=== PATIENT | male | born 1980 | race Caucasian/White ===

== ENCOUNTER 2016-06-26 15:23 | Emergency (ER) | payer SELFPAY ==
[2016-06-26 15:50] VITALS: TEMP 99.3
[2016-06-26 16:28] VITALS: BMI 30.1
[2016-06-26 17:25] LABS: ADD MANUAL DIFF? NO
[2016-06-26 17:34] LABS: BASO # 0.04 K/mm3 (0.0-2.0); BASO % 0.5 % (0.0-3.0); EOS # 0.4 (0.0-0.7); EOS % 5.1 % (1.5-5.0); GRAN # 4.35 (1.4-6.5); GRAN % 51.3 % (50.0-68.0); HEMATOCRIT 41.1 % (42.0-52.0); LYMPH # 3.1 (1.2-3.4); LYMPH % 36.8 % (22.0-35.0); MEAN CELL VOLUME 82.7 fL (80.0-105.0); MEAN CORPUSCULAR HEMOGLOBIN 28.8 pg (25.0-35.0); MEAN CORPUSCULAR HGB CONC 34.8 g/dl (31.0-37.0); MEAN PLATELET VOLUME 9.5 fl (7.0-11.0); MONO # 0.5 (0.1-0.6); MONO % 6.3 % (1.0-6.0); PLATELET COUNT 306 10^3/uL (120.0-450.0); RED CELL DISTRIBUTION WIDTH 12.8 % (11.5-14.5); WHITE BLOOD COUNT 8.5 10^3/ul (4.5-11.0)
[2016-06-26 17:45] LABS: ALB/GLOB RATIO 1.4 (1.1-1.8); ALKALINE PHOSPHATASE 102 U/L (38-133); ALT/SGPT 70 U/L (7-56); AST/SGOT 31 U/L (15-59); BILIRUBIN,TOTAL 0.9 mg/dL (0.2-1.3); BLOOD UREA NITROGEN 18 mg/dL (7-21); CALCIUM 9.1 mg/dL (8.4-10.5); CARBON DIOXIDE 28 mmol/L (21-33); CHLORIDE 101 mmol/L (98-107); GFR AFRICAN-AMERICAN > 60; GLUCOSE,RANDOM 102 mg/dL (70-110); MAGNESIUM 2.2 mg/dL (1.7-2.2); POTASSIUM 4.2 mmol/L (3.6-5.0); SODIUM 138 mmol/L (132-148); TOTAL PROTEIN 7.6 g/dL (5.8-8.3)
[2016-06-26 18:10] LABS: TROPONIN I < 0.01 ng/mL
--- NOTE | 2016-06-26 19:38 | ED PDOC ---
Arrival/HPI <Leah Garcia - Last Filed: 06/26/16 21:06> - General Historian: Patient <Florina Vences PA-C - Last Filed: 06/26/16 21:58> - General Chief Complaint: Chest Pain Time Seen by Provider: 06/26/16 16:19 - History of Present Illness Narrative History of Present Illness (Text): 06/26/16 20:03 Patient with no past medical history, reports sudden onset of left-sided pressure-like headache radiating down the left neck, left shoulder and the left upper chest, which started while he was sitting down on his desk at work, states that he also felt lightheaded when the symptoms had occurred, which started 10 minutes prior to arrival, here in the emergency room patient reports that the headache subsided, and reports of only discomfort to the left shoulder. 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 (Florina Vences PA-C) Past Medical History - Provider Review Nursing Documentation Reviewed: Yes - Past History Past History: No Previous - Infectious Disease Hx of Infectious Diseases: None - Tetanus Immunization Tetanus Immunization: Unknown - Past Medical History Past Medical History: No Previous - Cardiac Hx Cardiac Disorders: No - Pulmonary Hx Respiratory Disorders: No - Neurological Hx Neurological Disorder: No - HEENT Hx HEENT Disorder: No - Renal Hx Renal Disorder: No - Endocrine/Metabolic Hx Endocrine Disorders: No - Hematological/Oncological Hx Blood Disorders: No - Integumentary Hx Dermatological Disorder: No - Musculoskeletal/Rheumatological Hx Musculoskeletal Disorders: No Hx Falls: No - Gastrointestinal Hx Gastrointestinal Disorders: Yes Hx Diverticulitis: Yes Hx Gastroesophageal Reflux: Yes - Genitourinary/Gynecological Hx Genitourinary Disorders: No - Psychiatric Hx Psychophysiologic Disorder: Yes Hx Anxiety: Yes Hx Substance Use: No - Past Surgical History Past Surgical History: No Previous - Anesthesia Hx Anesthesia: No - Suicidal Assessment Feels Threatened In Home Enviroment: No <Florina Vences PA-C - Last Filed: 06/26/16 21:58> Family/Social History - Physician Review Nursing Documentation Reviewed: Yes Family/Social History: Hypertension (mother). denies: CAD/VA Smoking Status: Current Some Days Smoker Hx Alcohol Use: No Hx Substance Use: No Hx Substance Use Treatment: No <Florina Vences PA-C - Last Filed: 06/26/16 21:58> Allergies/Home Meds <Leah Garcia - Last Filed: 06/26/16 21:06> <Florina Vences PA-C - Last Filed: 06/26/16 21:58> Allergies/Adverse Reactions: Allergies No Known Allergies Allergy (Verified 10/12/12 02:52) per patient Review of Systems - Review of Systems Constitutional: Normal. absent: Fatigue, Weight Change, Fevers Respiratory: Normal. absent: SOB, Cough, Sputum Cardiovascular: Normal, Chest Pain. absent: Palpitations, Edema Gastrointestinal: Normal. absent: Abdominal Pain, Stool Changes, Appetite Changes Musculoskeletal: Normal, Arthralgias (L shoulder pain). absent: Back Pain, Neck Pain Skin: Normal. absent: Rash, Pruritis, Skin Lesions Neurological: Normal. absent: Headache, Dizziness, Focal Weakness <Florina Vences PA-C - Last Filed: 06/26/16 21:58> Physical Exam <Leah Garcia - Last Filed: 06/26/16 21:06> <Florina Vences PA-C - Last Filed: 06/26/16 21:58> - Physical Exam Narrative Physical Exam (Text): 06/26/16 20:07 GENERAL APPEARANCE: Patient is awake, alert, oriented x 3, in no acute distress. SKIN: Warm, dry; (-) cyanosis. EYES: (-) conjunctival pallor. ENMT: Mucous membranes moist. NECK: (+) L posterior tenderness, (-) stiffness, (-) lymphadenopathy, (-) JVD. CHEST AND RESPIRATORY: (-) rash, (-) chest wall tenderness. Lungs: (-) rales , (-) rhonchi, (-) wheezes, (-) rub; breath sounds equal bilaterally. HEART AND CARDIOVASCULAR: (-) irregularity; (-) murmur, (-) gallop, (-) rub. ABDOMEN AND GI: Soft; (-) distention, (+) mild tenderness to the L upper chest , (-) palpable pulsatile mass. EXTREMITIES: (+) pain elicited to the L shoulder with ROM, (-) deformity; (-) edema, (-) calf tenderness. (+) distal pulses. NEURO AND PSYCH: Mental status as above. Cranial nerves grossly intact; strength symmetric. (Florina Vences PA-C) Vital Signs Temp Pulse Resp BP Pulse Ox 06/26/16 21:02 74 15 144/73 100 06/26/16 19:44 64 20 127/66 100 06/26/16 17:23 67 18 134/43 L 97 06/26/16 15:50 99.3 F 68 20 134/80 97 Medical Decision Making <Leah Garcia - Last Filed: 06/26/16 21:06> - Lab Interpretations I have reviewed the lab results: Yes Interpretation: All labs normal <Florina Vences PA-C - Last Filed: 06/26/16 21:58> ED Course and Treatment: 06/26/16 21:04 Patient seen and examined. His pain was primarily from the head/neck to the L shoulder and worse with movement. The chest pain was exacerbated with movement. EKG is unremarkable with no ST/T changes and normal CE. Patient smokes but no FH of CAD; given toradol with improvement in the ED and says he will f/u in the medical clinic for further treatment and evaluation. (Leah Garcia) 06/26/16 20:08 36 yo M with no PMH, reports left-sided headache radiating to the left side of the neck, left shoulder and left upper chest. Based on exam symptoms are likely due to musculoskeletal pain as the pain is reproducible with palpation and range of motion. Plan: -- Labs -- alarm security or surveillance monitor -- EKG -- CXR -- Tylenol -- Reassess and disposition -- CT HEAD EKG: NSR at 77 bpm, (-) acute ST changes, as read by GIANCARLO. CXR : NAD, as read by PA Labs reviewed and are within normal limits, troponin is negative. On reevaluation, patient is lying comfortably in bed in no acute distress, denies any headache or chest pain at this time. Patient does report mild discomfort in his left shoulder radiating to the posterior left upper back and left neck. On exam, patient remains awake, alert, oriented 3, with tenderness noted to the left shoulder and left upper back, pain elicited to the left shoulder with range of motion. Patient given a dose of Toradol IV. On re-evaluation, patient is feeling much improved, feels comfortable going home , states that he will follow up with a doctor and knows of a clinic to follow up with. Patient states he fully agrees with and understands discharge instructions. States that he agrees with the plan and disposition. Verbalized and repeated discharge instructions and plan. I have given the patient opportunity to ask any additional questions. Follow up with a doctor in 1-2 days without fail. Return to the emergency room at any time for any new or worsening symptoms. (Ru JACKSON,Florina Del Rio) - Lab Interpretations Lab Results: 06/26/16 17:20 06/26/16 17:20 Lab Results 06/26/16 17:20: Sodium 138, Potassium 4.2, Chloride 101, Carbon Dioxide 28, Anion Gap 13, BUN 18, Creatinine 0.8, Est GFR ( Amer) > 60, Est GFR (Non- Af Amer) > 60, Random Glucose 102, Calcium 9.1, Magnesium 2.2, Total Bilirubin 0.9, AST 31, ALT 70 H, Alkaline Phosphatase 102, Lactate Dehydrogenase 388, Total Creatine Kinase 109, Troponin I < 0.01, Total Protein 7.6, Albumin 4.4, Globulin 3.2, Albumin/Globulin Ratio 1.4 06/26/16 17:20: WBC 8.5, RBC 4.97, Hgb 14.3, Hct 41.1 L, MCV 82.7, MCH 28.8, MCHC 34.8, RDW 12.8, Plt Count 306, MPV 9.5, Gran % 51.3, Lymph % (Auto) 36.8 H , Clayton % (Auto) 6.3 H, Eos % (Auto) 5.1 H, Baso % (Auto) 0.5, Gran # 4.35, Lymph # 3.1, [place] # 0.5, Eos # 0.4, Baso # 0.04 - RAD Interpretation Narrative RAD Interpretations (Text): 06/26/16 19:38 CT head: FINDINGS: Brain: Unremarkable. No hemorrhage. No significant white matter disease. No edema. Ventricles: Unremarkable. No ventriculomegaly. Bones/joints: Unremarkable. No acute fracture. Soft tissues: Unremarkable. Sinuses: Right maxillary sinus polyp. Mastoid air cells: Unremarkable as visualized. No mastoid effusion. IMPRESSION: No acute findings. Dictated and Authenticated by: Arpit Irene MD 06/26/2016 7:09 PM Eastern Time ([place] & [place]) (Florina Vences PA-C) Radiology Orders: 06/26/16 16:56 CHEST PORTABLE [RAD] Stat 06/26/16 16:58 HEAD W/O CONTRAST [CT] Stat - Medication Orders Current Medication Orders: Discontinued Medications Acetaminophen (Tylenol 325mg Tab) 975 mg PO STAT STA Stop: 06/26/16 16:59 Last Admin: 06/26/16 17:15 Dose: 975 mg Re-Assess: MAR Pain/Vitals Document 06/26/16 18:15 LAC (Rec: 06/26/16 19:46 [id number] Pain Reassessment Is This A Pain ReAssessment? Yes Sleep Is patient sleeping during reassessment? No Presence of Pain Presence of Pain Yes Pain Scale Used Pain Scale Used Numeric Location Intensity 6 Ketorolac Tromethamine (Toradol) 30 mg IVP STAT STA Stop: 06/26/16 19:43 Last Admin: 06/26/16 19:45 Dose: 30 mg - PA / PHOTOGRAPH RETOUCHER / Resident Statement ABEL has reviewed & agrees with the documentation as recorded. ABEL has examined the patient and agrees with the treatment plan. <Leah Garcia - Last Filed: 06/26/16 21:06> - PA / PHOTOGRAPH RETOUCHER / Resident Statement ABEL has reviewed & agrees with the documentation as recorded. <Florina Vences PA-C - Last Filed: 06/26/16 21:58> Disposition/Present on Arrival - Disposition Disposition Time: 21:05 Patient Plan: Discharge <Leah Garcia - Last Filed: 06/26/16 21:06> - Present on Arrival Any Indicators Present on Arrival: No History of DVT/PE: No History of Uncontrolled Diabetes: No Urinary Catheter: No History of Decub. Ulcer: No History Surgical Site Infection Following: None - Disposition Have Diagnosis and Disposition been Completed?: Yes Patient Plan: Discharge <Florina Vences PA-C - Last Filed: 06/26/16 21:58> - Disposition Diagnosis: Cervical radiculopathy, Atypical chest pain Disposition: HOME/ ROUTINE Condition: GOOD Discharge Instructions (ExitCare): Chest Pain (ED) Additional Instructions: Stop smoking. Take the medications as prescribed. Make sure you follow up in the medical clinic for further workup. Return to the emergency department if any new concerning symptoms. Prescriptions: Naproxen [Naprosyn] 500 mg PO BID PRN #20 tab PRN Reason: Pain Referrals: Charlotte Orosco, [Primary Care Provider] - Follow up with primary
[2016-06-26 19:45] VITALS: O2SAT 100
[2016-06-26 21:04] VITALS: BP 144/73; PULSE 74; RESP 15
--- NOTE | 2016-06-27 07:16 | RAD ---
HISTORY: chest pain COMPARISON: Chest x-ray performed 06/05/14. TECHNIQUE: Chest, one view. FINDINGS: Examination limited by habitus. LUNGS: Right mid lung zone linear atelectasis. No focal consolidation identified. Please note that chest x-ray has limited sensitivity for the detection of pulmonary masses. PLEURA: No significant pleural effusion identified. No definite pneumothorax . CARDIOVASCULAR: Heart size appears top normal. OSSEOUS STRUCTURES: No acute osseous abnormality identified. VISUALIZED UPPER ABDOMEN: Unremarkable. OTHER FINDINGS: None. IMPRESSION: Linear atelectasis, right midlung zone.
--- NOTE | 2016-06-27 07:28 | CT ---
PROCEDURE: CT HEAD WITHOUT CONTRAST. HISTORY: headache COMPARISON: Noncontrast head CT performed 06/25/15 TECHNIQUE: Axial computed tomography images were obtained through the head/brain without intravenous contrast. Radiation dose: Total exam DLP = 871.01 mGy-cm. This CT exam was performed using one or more of the following dose reduction techniques: Automated exposure control, adjustment of the mA and/or kV according to patient size, and/or use of iterative reconstruction technique. FINDINGS: HEMORRHAGE: No intracranial hemorrhage. BRAIN: No mass effect or edema. No atrophy or chronic microvascular ischemic changes.Please note that MRI with diffusion imaging is more sensitive in the detection of acute ischemic event. VENTRICLES: No hydrocephalus. CALVARIUM: Unremarkable. PARANASAL SINUSES: Right maxillary retention polyp/mucosal cysts. Remainder the visualized paranasal sinuses appear clear. MASTOID AIR CELLS: Unremarkable as visualized. No inflammatory changes. OTHER FINDINGS: None. IMPRESSION: No acute intracranial pathology identified. Preliminary impression was provided by virtual radiologic.
--- NOTE | 2016-06-27 11:53 | CARD ---
APPROVED REPORT EKG Measurement Heart [id number] <Conclusion> Normal sinus rhythm with sinus arrhythmia Nonspecific T wave abnormality
== END 2016-06-26 21:14 | disposition home or self-care (01) ==
LOC: ED 15:23
DX: M54.12 Radiculopathy, cervical region (principal); R07.89 Other chest pain
CPT/HCPCS: 70450; 71010; 80053; 82550; 83615; 83735; 84484; 85025; 93005; 96374; 99284; J1885

== ENCOUNTER 2016-11-21 14:00 | Emergency (ER) | payer SELFPAY ==
[2016-11-21 14:00] VITALS: BMI 30.1
[2016-11-21 14:14] VITALS: TEMP 98.5
[2016-11-21] MEDS ORDERED: DiphenhydrAMINE 50 mg/ml Inj IVP STA (14:20)
--- NOTE | 2016-11-21 14:26 | ED PDOC ---
Arrival/HPI - General Chief Complaint: Headache Time Seen by Provider: 11/21/16 14:01 Historian: Patient - History of Present Illness Narrative History of Present Illness (Text): 11/21/16 14:18 A 36 year old male, with no significant past medical history, presents to the emergency department complaining of headache and b/l knee pain. Patient reports he had his blood pressure checked at work showing to be high. Also, patient was experiencing blurry vision at the time but it has resolved since then. Patient states he woke up this morning feeling normal, but later on began experiencing complaint symptoms, as well as dizziness and chills. Denies of any chills, trauma, fall, or any other complaints. 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 No PMD Time/Duration: 4-6 hours Symptom Onset: Sudden Symptom Course: Unchanged Context: Work Past Medical History - Provider Review Nursing Documentation Reviewed: Yes - Past History Past History: No Previous - Infectious Disease Hx of Infectious Diseases: None - Tetanus Immunization Tetanus Immunization: Unknown - Past Medical History Past Medical History: No Previous - Cardiac Hx Cardiac Disorders: No - Pulmonary Hx Respiratory Disorders: No - Neurological Hx Neurological Disorder: No - HEENT Hx HEENT Disorder: No - Renal Hx Renal Disorder: No - Endocrine/Metabolic Hx Endocrine Disorders: No - Hematological/Oncological Hx Blood Disorders: No - Integumentary Hx Dermatological Disorder: No - Musculoskeletal/Rheumatological Hx Musculoskeletal Disorders: No Hx Falls: No - Gastrointestinal Hx Gastrointestinal Disorders: Yes Hx Diverticulitis: Yes Hx Gastroesophageal Reflux: Yes - Genitourinary/Gynecological Hx Genitourinary Disorders: No - Psychiatric Hx Psychophysiologic Disorder: Yes Hx Anxiety: Yes Hx Substance Use: No - Past Surgical History Past Surgical History: No Previous - Anesthesia Hx Anesthesia: No - Suicidal Assessment Feels Threatened In Home Enviroment: No Family/Social History - Physician Review Nursing Documentation Reviewed: Yes Family/Social History: No Known Family HX Smoking Status: Current Some Days Smoker Hx Alcohol Use: No Hx Substance Use: No Hx Substance Use Treatment: No Allergies/Home Meds Allergies/Adverse Reactions: Allergies No Known Allergies Allergy (Verified 11/21/16 14:10) per patient Home Medications: Home Meds Medication Instructions Recorded Confirmed No Known Home Med 11/21/16 11/21/16 Review of Systems - Physician Review All systems were reviewed & negative as marked: Yes - Review of Systems Constitutional: Night Sweats. absent: Fevers, Other (no trauma or fall) Musculoskeletal: Other (b/l knee pain) Neurological: Headache, Dizziness Physical Exam Vital Signs Reviewed: Yes Vital Signs Temp Pulse Resp BP Pulse Ox 11/21/16 16:10 69 18 138/84 98 11/21/16 14:11 98.5 F 72 17 143/87 97 Temperature: Afebrile Blood Pressure: Normal Pulse: Regular Respiratory Rate: Normal Appearance: Positive for: Well-Appearing Pain Distress: None Mental Status: Positive for: Alert and Oriented X 3 - Systems Exam Head: Present: Atraumatic, Normocephalic Pupils: Present: PERRL Extroacular Muscles: Present: EOMI Conjunctiva: Present: Normal Mouth: Present: Moist Mucous Membranes Neck: Present: Normal Range of Motion Respiratory/Chest: Present: Clear to Auscultation, Good Air Exchange. No: Respiratory Distress, Accessory Muscle Use Cardiovascular: Present: Regular Rate and Rhythm, Normal S1, S2. No: Murmurs Abdomen: Present: Normal Bowel Sounds. No: Tenderness, Distention, Peritoneal Signs Back: Present: Normal Inspection Upper Extremity: Present: Normal Inspection. No: Cyanosis, Edema Lower Extremity: Present: Normal Inspection. No: Edema Neurological: Present: GCS=15, CN II-XII Intact, Speech Normal Skin: Present: Warm, Dry, Normal Color. No: Rashes Psychiatric: Present: Alert, Oriented x 3, Normal Insight, Normal Concentration Medical Decision Making ED Course and Treatment: 11/21/16 14:21 Impression: 36 year old male with headache and b/l knee pain. Physical exam is benign. neuro intact. pt noted to have multiple cts recently all neg. Plan: -- Bilateral Knee X-Ray -- Labs -- Benadryl -- Reglan -- Reassess and disposition Prior Visits: Notes and results from previous visits were reviewed. Patient was last seen on 06/26/2016 for left-sided presssure-like headache radiating down the left neck, left shoulder, and the left upper chest. Patient was discharged home with prescription of Naproxen 500 mg PO BID PRN X20 tab for pain, and instructions to stop smoking. Progress Notes: 11/21/2016 16:05 Bilateral Knee X-ray FINDINGS: BONES: Right Knee: Normal. No fracture. Left Knee: Normal. No fracture. JOINTS: Right Knee: Normal. No osteoarthritis. Left knee: Normal. No osteoarthritis. SOFT TISSUES: Right Knee: Normal. Left Knee: Normal. JOINT EFFUSION: Right Knee: None. Left Knee: None. OTHER FINDINGS: None. IMPRESSION: Normal radiographs of the knees. Dictator: Cornelius Herrera MD 11/21/16 19:57 labs xr neg. no thunderclap features, pain improved. steady gait, multiple cts neg. advise outpt f/u and return precautions - Lab Interpretations Lab Results: 11/21/16 15:27 11/21/16 15:27 Lab Results 11/21/16 15:27: Sodium 139, Potassium 4.0, Chloride 103, Carbon Dioxide 25, Anion Gap 15, BUN 11, Creatinine 0.7 L, Est GFR ( Amer) > 60, Est GFR ( Non-Af Amer) > 60, Random Glucose 114 H, Calcium 9.1, Total Bilirubin 0.5, AST 34, ALT 50, Alkaline Phosphatase 104, Total Protein 7.1, Albumin 4.4, Globulin 2.7, Albumin/Globulin Ratio 1.6 11/21/16 15:27: PT 10.0, INR 0.93, APTT 28.0 11/21/16 15:27: WBC 7.6, RBC 5.06, Hgb 14.8, Hct 41.6 L, MCV 82.2, MCH 29.2, MCHC 35.6, RDW 12.6, Plt Count 287, MPV 9.6, Gran % 55.6, Lymph % (Auto) 33.5, [place] % (Auto) 5.6, Eos % (Auto) 4.6, Baso % (Auto) 0.7, Gran # 4.24, Lymph # 2.6 , Ponce # 0.4, Eos # 0.4, Baso # 0.05 I have reviewed the lab results: Yes - RAD Interpretation Radiology Orders: 11/21/16 14:20 KNEES BILATERAL [RAD] Stat - Medication Orders Current Medication Orders: Discontinued Medications Diphenhydramine HCl (Benadryl) 25 mg IVP STAT STA Stop: 11/21/16 14:21 Last Admin: 11/21/16 15:16 Dose: 25 mg IVP Administration Document 11/21/16 15:16 LA (Rec: 11/21/16 15:29 LA [id number]) Charges for Administration # of IVP Administrations 1 Metoclopramide HCl (Reglan) 10 mg IVP STAT STA Stop: 11/21/16 14:21 Last Admin: 11/21/16 15:30 Dose: 10 mg IVP Administration Document 11/21/16 15:30 LA (Rec: 11/21/16 15:30 LA [id number]) Charges for Administration # of IVP Administrations 1 - Scribe Statement The provider has reviewed the documentation as recorded by the Leelaibluan Sandhu Provider Scribe Attestation: All medical record entries made by the Scribe were at my direction and personally dictated by me. I have reviewed the chart and agree that the record accurately reflects my personal performance of the history, physical exam, medical decision making, and the department course for this patient. I have also personally directed, reviewed, and agree with the discharge instructions and disposition. Disposition/Present on Arrival - Present on Arrival Any Indicators Present on Arrival: No History of DVT/PE: No History of Uncontrolled Diabetes: No Urinary Catheter: No History of Decub. Ulcer: No History Surgical Site Infection Following: None - Disposition Have Diagnosis and Disposition been Completed?: Yes Diagnosis: Headache, Dizziness, Knee pain Disposition: HOME/ ROUTINE Disposition Time: 04:00 Condition: STABLE Discharge Instructions (ExitCare): Knee Sprain (ED), Acute Headache (ED), Hypertension (ED), Dizziness (ED) Referrals: [facility] [Outside] - Follow up with primary [facility] [Outside] - [place] [facility] - Follow up with primary [facility] [Outside] - Follow up with primary Gaston Gillis MD [Staff Provider] - Follow up with primary Forms: [facility] (Turkish)
[2016-11-21 15:38] LABS: BASO # 0.05 K/mm3 (0.0-2.0); BASO % 0.7 % (0.0-3.0); EOS # 0.4 (0.0-0.7); EOS % 4.6 % (1.5-5.0); GRAN # 4.24 (1.4-6.5); GRAN % 55.6 % (50.0-68.0); HEMATOCRIT 41.6 % (42.0-52.0); LYMPH # 2.6 (1.2-3.4); LYMPH % 33.5 % (22.0-35.0); MEAN CELL VOLUME 82.2 fl (80.0-105.0); MEAN CORPUSCULAR HEMOGLOBIN 29.2 pg (25.0-35.0); MEAN CORPUSCULAR HGB CONC 35.6 g/dl (31.0-37.0); MEAN PLATELET VOLUME 9.6 fl (7.0-11.0); MONO # 0.4 (0.1-0.6); MONO % 5.6 % (1.0-6.0); RED CELL DISTRIBUTION WIDTH 12.6 % (11.5-14.5); WHITE BLOOD COUNT 7.6 10^3/ul (4.5-11.0)
[2016-11-21 15:48] LABS: INR 0.93 (0.93-1.08)
[2016-11-21 15:50] LABS: ALB/GLOB RATIO 1.6 (1.1-1.8); ALKALINE PHOSPHATASE 104 U/L (38-126); ALT/SGPT 50 U/L (7-56); AST/SGOT 34 U/L (17-59); BILIRUBIN,TOTAL 0.5 mg/dL (0.2-1.3); BLOOD UREA NITROGEN 11 mg/dL (7-21); CALCIUM 9.1 mg/dL (8.4-10.5); CARBON DIOXIDE 25 mmol/L (21-33); CHLORIDE 103 mmol/L (98-107); GFR AFRICAN-AMERICAN > 60; SODIUM 139 mmol/L (132-148); TOTAL PROTEIN 7.1 g/dL (5.8-8.3)
[2016-11-21 16:02] LABS: GLUCOSE,RANDOM 114 mg/dL (70-110)
--- NOTE | 2016-11-21 16:07 | RAD ---
PROCEDURE: Bilateral Knee Radiographs. HISTORY: pain COMPARISON: None. FINDINGS: BONES: Right Knee: Normal. No fracture. Left Knee: Normal. No fracture. JOINTS: Right Knee: Normal. No osteoarthritis. Left knee: Normal. No osteoarthritis. SOFT TISSUES: Right Knee: Normal. Left Knee: Normal. JOINT EFFUSION: Right Knee: None. Left Knee: None. OTHER FINDINGS: None. IMPRESSION: Normal radiographs of the knees.
[2016-11-21 16:10] VITALS: BP 138/84; PULSE 69; RESP 18; O2SAT 98
== END 2016-11-21 16:31 | disposition home or self-care (01) ==
LOC: ED 14:00
DX: R51 Headache (principal); R42 Dizziness and giddiness; M25.562 Pain in left knee; M25.561 Pain in right knee
CPT/HCPCS: 73560; 80053; 85025; 85610; 85730; 96374; 96375; 99281; J1200; J2765